=== PATIENT | female | born 1985 | race Caucasian/White ===

== ENCOUNTER 2025-03-10 06:47 | Observation (INO) | payer OTHER ==
[2025-03-09 09:22] VITALS: BMI 27.3
[2025-03-10] MEDS ORDERED: Bupivacaine HCl 0.5%/Epinephrine 1:200,000/PF 30 ml Vial ONE (07:12)
[2025-03-10] MEDS ORDERED: Famotidine/PF 20 mg/2ml Vial ONE ×2 (07:21→07:22)
[2025-03-10] MEDS ORDERED: CEFAZOLIN 2 GM VIAL ONE (07:21)
[2025-03-10] MEDS ORDERED: Lidocaine 1% PF 5 ML VIAL ONE (07:38)
[2025-03-10] MEDS ORDERED: Rocuronium Bromide 10 MG/ML (10ML VIAL) ONE (07:38)
[2025-03-10] MEDS ORDERED: PROPOFOL 20 ML ONE (07:38)
[2025-03-10 07:55] LABS: #Basophils 0.04 10x3/uL (0.0-0.2); #Eosinophils 0.07 10x3/uL (0.0-0.5); #Monocytes 0.40 10x3/uL (0.0-1.1); #Neutrophils 2.52 10x3/uL (1.5-8.4); %Basophils 0.9 % (0.0-2.0); %Eosinophils 1.5 % (0.0-6.0); %Lymphocytes 34.1 % (18.0-47.0); %Monocytes 8.7 % (0.0-10.0); %Neutrophils 54.6 % (40.0-75.0); Hematocrit 29.0 % (34.9-44.5); Hemoglobin 8.8 g/dL (12.0-15.5); Mean Corpuscular Hemoglobin 22.2 pg (27.0-33.0); Mean Corpuscular Volume 73.2 fL (81.6-98.3); Platelet Count 237 10x3/uL (150-450); Red Blood Cell (RBC) Count 3.96 10x6/uL (3.90-5.03); White Blood Cell (WBC) Count 4.61 10x3/uL (3.5-10.5)
[2025-03-10 08:04] LABS: BHCG - Serum Negative (NEGATIVE); Pregs Control Background? CLEAR/WHITE (CLR/WHITE); Pregs Control Bar Appear? YES (CONTROL BAR)
[2025-03-10 08:44] LABS: Anisocytosis SLIGHT = 6-15 cells (100X) (0-5/hpf); Microcytosis SLIGHT = 6-15 cells (100X) (0-5/hpf); Platelet Adequacy Comment Appears Adequate; Polychromasia SLIGHT = 2-3 cells (100X) (0-2/hpf)
[2025-03-10] MEDS ORDERED: Ondansetron PF 4 MG/2 ML Vial ONE (08:47)
[2025-03-10] MEDS ORDERED: Simethicone Chewable 80 MG TAB PO PRN (10:38)
[2025-03-10] MEDS ORDERED: diphenhydrAMINE 25 MG CAP PO PRN (10:38)
[2025-03-10] MEDS ORDERED: Bisacodyl 10 MG SUPP PR PRN (10:38)
[2025-03-10] MEDS ORDERED: Ketorolac Tromethamine 30 MG (1 mL) VIAL IVP SCH (12:00)
[2025-03-10] MEDS: Ketorolac Tromethamine 30 MG (1 mL) VIAL IVP PRN (12:08)
[2025-03-10] MEDS: Ondansetron PF 4 MG/2 ML Vial IVP PRN (12:28)
[2025-03-10] MEDS: HYDROcodone/Acetaminophen 5/325 mg Tablet PO PRN ×2 (15:25→20:01)
[2025-03-10] MEDS: Ibuprofen 800 MG TAB PO SCH (18:16)
[2025-03-11 03:58] LABS: Hematocrit 26.1 % (34.9-44.5); Hemoglobin 7.9 g/dL (12.0-15.5); Mean Corpuscular Hemoglobin 22.0 pg (27.0-33.0); Mean Corpuscular Volume 72.7 fL (81.6-98.3); Platelet Count 249 10x3/uL (150-450); Red Blood Cell (RBC) Count 3.59 10x6/uL (3.90-5.03); White Blood Cell (WBC) Count 8.36 10x3/uL (3.5-10.5)
[2025-03-11 11:10] VITALS: BP 130/82; TEMP 98.9
== END 2025-03-11 14:25 | disposition home or self-care (01) ==
LOC: CSHSDC 06:47 → EEVIPCON 10:26 → CSHPED 10:26
PROVIDERS: ADMIT Obstetrics & Gynecology; ATTEND Obstetrics & Gynecology
PROC: 0UT98ZZ Resection of Uterus, Via Natural or Artificial Opening Endoscopic (ICD-10-PCS; principal; 2025-03-10)
PROC: 0UB78ZZ Excision of Bilateral Fallopian Tubes, Via Natural or Artificial Opening Endoscopic (ICD-10-PCS; 2025-03-10)
DX: D25.9 Leiomyoma of uterus, unspecified (principal); N80.03 Adenomyosis of the uterus; N87.9 Dysplasia of cervix uteri, unspecified; N88.8 Other specified noninflammatory disorders of cervix uteri; N92.0 Excessive and frequent menstruation with regular cycle; Z88.0 Allergy status to penicillin; Z79.899 Other long term (current) drug therapy
CPT/HCPCS: 36415; 84703; 85025; 85027; 86850; 86870; 86900; 86901; 86905; 86922; 88307; J1100; J1885; J2250; J2550; J2704; J7030; S2900